=== PATIENT | female | born 1975 | race Caucasian/White ===

== ENCOUNTER 2019-07-29 15:47 | Emergency (ER) | payer OTHER, SELFPAY ==
--- NOTE | 2019-07-29 15:55 | ED.GENADULT ---
HPI - General Adult General Chief complaint: Upper Respiratory Infection Stated complaint: eye and chest pain Time Seen by Provider: 07/29/19 15:55 Source: patient Mode of arrival: ambulatory Limitations: no limitations History of Present Illness HPI narrative: 44-year-old female patient presents to the [facility] with complaints of bilateral eye pain along with some cold symptoms. Patient states that she has had bilateral eye pain for the past week. Patient states that she does tend to get external styes but coming in today with complaints of pain to the right lower lid and another little knot to the left lower lid. Patient states that the right eye has been draining a little bit of yellow discharge. Denies any vision changes or itchiness to the eye. Patient states she has been using warm compresses to the eye. Patient states she has had a little bit of a runny nose and some drainage to the back of the throat causing her to cough and spit up sputum. Patient states that at times she does have some chest pain and shortness of breath. Patient does admit to being a smoker. Patient states that she is very prone to sinus infections but denies taking any type of antihistamines on a daily basis. Denies any fevers at this time. Denies any abdominal pain, nausea, vomiting or diarrhea. Patient states she has had pneumonia before in the past but denies any history of asthma. Related Data Home Medications Medication Instructions Recorded Confirmed clonazepam 0.5 mg PO DAILY 07/29/19 07/29/19 sertraline 50 mg PO DAILY 07/29/19 07/29/19 Allergies Allergy/AdvReac Type Severity Reaction Status Date / Time ibuprofen Allergy Unknown hives Verified 07/29/19 16:17 Review of Systems Review of Systems: Narrative: CONSTITUTIONAL: Denies fever, chills, or sweats. EYES: Denies visual changes, positive bilateral eye redness with discharge from the right eye. ENT: Positive rhinorrhea, congestion, sore throat, denies otalgia. CARDIOVASCULAR: Denies chest pain, palpitations, or edema. RESPIRATORY: Positive cough with dyspnea at times GASTROINTESTINAL: Denies abdominal pain, nausea, vomiting, or diarrhea. GENITOURINARY: Denies dysuria or hematuria. SKIN: Denies rash or itching. MUSCULOSKELETAL: Denies back pain, joint pain, or myalgia. NEUROLOGIC: Denies headache, numbness, or weakness. PSYCHIATRIC: Denies anxiety or depression. PMFSH Past Medical History Medical History (Updated 07/29/19 @ 16:23 by RADHA Roberts) Arthritis Fibromyalgia Methadone dependence Due to history of opioid use Pneumonia Rheumatoid arthritis Surgical History Surgical History (Updated 07/29/19 @ 15:58 by RADHA Roberts) H/O: hysterectomy Comments At the time of my signature I agree with nursing past medical history, surgical, social, and family history. There is no relevant family history pertinent to the presenting complaint. Exam Narrative: Exam Narrative: GENERAL: Well-appearing, well-nourished, and in no acute distress. HEAD: Normocephalic, atraumatic. Tenderness noted to frontal sinuses on palpation EYES: PERRLA and EOM intact without limitation or complaint of pain, no periorbital soft tissue swelling ,no erythema, warmth or tenderness noted, no obvious deformity. There is some swelling and erythema noted to the right lower lid. On eversion of the lid there is 2 small internal hordeolum is present. There is a hard nodule palpated to the lateral side of the left lower leg with no pain, erythema or warmth to it. No crusting or swelling.no tearing or draining.No photophobia. No nystagmus No FB or lesion on lid eversion. Corneas grossly clear, no obvious FB or hyphens/hypopyon. No injection to sclera. Lids and lashes clear. ENT: Nares with erythema and edema noted bilaterally with right nare swollen shut, no rhinorrhea or epistaxis. Mucous membranes moist. Posterior pharynx with some postnasal drip but no tonsil enlargement, exudates or lesions
[2019-07-29 16:10] VITALS: BP 153/87; PULSE 73; RESP 20; TEMP 36.6; O2SAT 100
== END 2019-07-29 16:25 | disposition home or self-care (01) ==
PROVIDERS: Emergency Provider Nurse Practitioner Family
DX: J30.9 Allergic rhinitis, unspecified (principal); H00.025 Hordeolum internum left lower eyelid; H00.022 Hordeolum internum right lower eyelid; M19.90 Unspecified osteoarthritis, unspecified site; M79.7 Fibromyalgia; M06.9 Rheumatoid arthritis, unspecified; R03.0 Elevated blood-pressure reading, without diagnosis of hypertension
CPT/HCPCS: 99203; G0463